=== PATIENT | female | born 1975 | race Hispanic/Latino ===

== ENCOUNTER 2018-05-31 20:41 | Emergency (ER) | payer OTHER | END 2018-05-31 21:11 | disposition home or self-care (01) | LOC: EDH 20:41 | DX: H66.91 Otitis media, unspecified, right ear (principal); J04.0 Acute laryngitis; E11.9 Type 2 diabetes mellitus without complications; E78.5 Hyperlipidemia, unspecified; Z90.710 Acquired absence of both cervix and uterus; Z79.4 Long term (current) use of insulin ==